=== PATIENT | female | born 1950 | race Caucasian/White ===

== ENCOUNTER 2022-03-27 12:31 | Emergency (ER) | payer OTHER ==
[~2022-03-27] VITALS: Ht 165.1 cm; Wt 88.5 kg
[2022-03-27 12:35] VITALS: BP_SYST 116
--- NOTE | 2022-03-27 12:35 | NUR ---
Placed in room 02 . Placed on vehicle monitor technician, blood pressure machine and pulse oximeter. To gown for exam. Side rails up. Report given to MEAGAN MIJARES.
--- NOTE | 2022-03-27 12:39 | NUR ---
[facility] that revealed early stage lung shadowing and pneumonia. Pt has hx of htn, CHF, diabetes. Has been in rehab for several months after having several cases of COVID. Pt is A&Ox4, calm and cooperative. Appears in no acute distress at this time. Care to be provided as ordered.
--- NOTE | 2022-03-27 12:40 | NUR ---
ER Dr. Montalvo at bedside examining patient.
[2022-03-27 12:59] LABS: BASOPHILS # (AUTO) 0.1 K/uL (0.0-0.2); BASOPHILS % (AUTO) 0.5 % (0.0-2.0); EOSINOPHILS # (AUTO) 0.2 K/uL (0.0-0.4); EOSINOPHILS % (AUTO) 2.1 % (0.0-4.0); HEMATOCRIT 40.1 % (36-48); HEMOGLOBIN 13.7 g/dL (12.0-16.0); LYMPHOCYTES # (AUTO) 0.9 K/uL (1.0-5.5); LYMPHOCYTES % (AUTO) 9.6 % (20.5-51.5); MEAN CORPUSCULAR HEMOGLOBIN 28 pg (27-31); MEAN CORPUSCULAR HGB CONC 34 % (32-36); MEAN CORPUSCULAR VOLUME 80 fL (79.0-98.0); MONOCYTES # (AUTO) 0.8 K/uL (0.0-1.0); MONOCYTES % (AUTO) 8.3 % (1.7-9.3); NEUTROPHILS # (AUTO) 7.6 K/uL (1.8-7.7); NEUTROPHILS % (AUTO) 79.5 % (40.0-70.0); PLATELET COUNT (AUTO) 306 K/uL (130-430); RED CELL DISTRIBUTION WIDTH 16.3 % (9.0-15.0); WHITE BLOOD COUNT (AUTO) 9.6 K/uL (4.8-10.8)
[2022-03-27 13:13] LABS: ANION GAP 8 (5-15); CALCIUM 9.7 mg/dL (8.4-11.0); CHLORIDE 107 mmol/L (98-107); CREATININE 0.75 mg/dL (0.55-1.30); GLUCOSE 106 mg/dL (70-99); UREA NITROGEN, BLOOD 22 mg/dL (8-21)
[2022-03-27 13:23] LABS: ALANINE AMINOTRANSFERASE 16 U/L (12-78); ALBUMIN 3.2 g/dL (3.4-4.8); ASPARTATE AMINOTRANSFERASE 17 U/L (10-37); TOTAL BILIRUBIN 0.4 mg/dL (0.0-1.0)
[2022-03-27] MEDS ORDERED: DOCU-144 PO (13:23)
[2022-03-27] MEDS ORDERED: VITD2000 PO (13:23)
[2022-03-27] MEDS ORDERED: ASCO500T20 PO (13:23)
[2022-03-27] MEDS ORDERED: DIPH25CA83 PO (13:23)
[2022-03-27] MEDS ORDERED: TYLL650 PO (13:23)
[2022-03-27] MEDS ORDERED: MELA5TAB12 PO (13:23)
[2022-03-27] MEDS ORDERED: BUDE0.5A IH (13:23)
[2022-03-27] MEDS ORDERED: SIME80TA15 PO (13:23)
[2022-03-27] MEDS ORDERED: ANT30 PO (13:23)
[2022-03-27] MEDS ORDERED: SER25 PO (13:23)
[2022-03-27] MEDS ORDERED: AUG875 PO (13:23)
[2022-03-27] MEDS ORDERED: ZIT250 PO (13:23)
[2022-03-27] MEDS ORDERED: SYN50 PO (13:23)
[2022-03-27] MEDS ORDERED: METF-518 PO (13:23)
[2022-03-27] MEDS ORDERED: POTA-197 PO (13:23)
[2022-03-27] MEDS ORDERED: THIA50TA10 PO (13:23)
[2022-03-27] MEDS ORDERED: CAT1PAT TD (13:23)
[2022-03-27] MEDS ORDERED: MULT15TA3 PO (13:23)
[2022-03-27] MEDS ORDERED: METO25TA6 PO (13:23)
[2022-03-27] MEDS ORDERED: POLY17PO4 PO (13:23)
[2022-03-27] MEDS ORDERED: ACET650T10 PO (13:23)
[2022-03-27] MEDS ORDERED: PROM473S6 PO (13:23)
--- NOTE | 2022-03-27 13:24 | NUR ---
Medication reconciliation completed with information provided by [facility]. Any prior medication reconciliation on file was reviewed and corrected.
--- NOTE | 2022-03-27 14:12 | NUR ---
covid and flu swab collected
[2022-03-27] MEDS ORDERED: ALBU2.5V7 INH (15:52)
[2022-03-27 18:36] VITALS: BP_SYST 121
--- NOTE | 2022-03-27 18:36 | NUR ---
Patient given written and verbal discharge instructions and verbalizes understanding. ER MD discussed with patient the results and treatment provided. Patient in stable condition. ID arm band removed. Rx of ALBUTEROL given. Patient educated on pain management and to follow up with PMD. Pain Scale 0/10. Opportunity for questions provided and answered. Medication side effect fact sheet provided.
== END 2022-03-27 18:36 ==
LOC: SED 12:31
DX: J18.9 Pneumonia, unspecified organism (principal); R05.9 Cough, unspecified; R06.02 Shortness of breath; E11.9 Type 2 diabetes mellitus without complications; I11.0 Hypertensive heart disease with heart failure; I50.9 Heart failure, unspecified; Z79.899 Other long term (current) drug therapy; Z20.822 Contact with and (suspected) exposure to COVID-19
CPT/HCPCS: 36415; 71045; 80053; 83605; 83880; 84484; 85025; 93005; 99285